=== PATIENT | female | born 1980 | race African-American/Black ===

== ENCOUNTER 2017-03-09 14:16 | Emergency (ER) | payer OTHER ==
[~2017-03-09] VITALS: Ht 170.2 cm; Wt 72.6 kg
[~2017-03-09 14:16] MED LIST: AMOXICILLIN 50500 M1 PO; HYDROCHLOROTH12.5 MG; HYDROCODON-ACE1 EAC7; KEFLEX500 MG PO; NORCO 5-325 TA1 EACH PO; SEROQUEL XR150 M1 PO; TESSALON200 MG PO; VENTOLIN HFA 1818 GM INH; VERAPAMIL E.R240 M1 PO; XANAX XR2 MG PO
[2017-03-09] MEDS ORDERED: PROAIR HFA8.5 GM INH (15:01)
[2017-03-09] MEDS ORDERED: TESSALON PERLE100 MG PO (15:01)
[2017-03-09 15:11] VITALS: BP 121/87
== END 2017-03-09 15:12 | disposition home or self-care (01) ==
LOC: ER 14:16
DX: J06.9 Acute upper respiratory infection, unspecified (principal); I10 Essential (primary) hypertension; Z87.891 Personal history of nicotine dependence

== ENCOUNTER 2018-07-21 14:35 | Emergency (ER) | payer OTHER ==
[~2018-07-21] VITALS: Ht 165.1 cm; Wt 81.7 kg
[~2018-07-21 14:35] MED LIST changes: +PROAIR HFA8.5 GM INH; +TESSALON PERLE100 MG PO
[2018-07-21] MEDS ORDERED: NORCO 5-325 TA1 EACH PO (16:47)
[2018-07-21] MEDS ORDERED: CYCLOBENZAPRINE5 MG PO (16:47)
[2018-07-21] MEDS ORDERED: MEDROLDOSEPACK PO (16:47)
[2018-07-21 17:43] VITALS: BP 163/95
== END 2018-07-21 17:47 | disposition home or self-care (01) ==
LOC: ER 14:35
DX: M51.26 Other intervertebral disc displacement, lumbar region (principal); I10 Essential (primary) hypertension; Z87.891 Personal history of nicotine dependence

== ENCOUNTER 2019-12-17 14:58 | Emergency (ER) | payer OTHER ==
[~2019-12-17] VITALS: Ht 170.2 cm; Wt 81.7 kg
[~2019-12-17 14:58] MED LIST changes: +CYCLOBENZAPRINE5 MG PO; +MEDROLDOSEPACK PO
[2019-12-17] MEDS ORDERED: HYDROCHLOROTHIA25 M2 PO (16:08)
[2019-12-17] MEDS ORDERED: BENAZEPRIL HCL40 MG PO (16:08)
[2019-12-17] MEDS ORDERED: METOPROLOL SUC100 MG PO (16:09)
[2019-12-17] MEDS ORDERED: NIFEDIPINE ER30 M1 PO (16:09)
[2019-12-17 16:51] LABS: ABSOLUTE NEUTROPHILS 1.6 thou/uL (1.4-8.2); BASOPHILS 0.4 % (0.0-2.0); EOSINOPHILS 2.9 % (0.0-3.0); HEMATOCRIT 38.7 % (37.0-47.0); HEMOGLOBIN 13.1 gm/dL (12.0-15.0); LYMPHOCYTES 52.7 % (24.0-44.0); MCH 29.8 pg (26.0-34.0); MCHC 33.9 g/dL (28.0-37.0); MCV 87.8 fL (80.0-100.0); MONOCYTES 7.4 % (1.0-8.0); PLATELET COUNT 167 thou/uL (150-400); POLYS 36.6 % (36.0-66.0); RBC 4.41 mil/uL (4.20-5.00); RDW 15.1 % (10.5-14.5); WBC 4.3 thou/uL (4.0-11.0)
[2019-12-17 17:08] LABS: ALBUMIN 3.4 g/dL (3.4-5.0); CALCIUM 8.9 mg/dL (8.5-10.1); CREATININE 0.7 mg/dL (0.6-1.0); TOTAL BILIRUBIN 0.2 mg/dL (0.2-1.0); TOTAL PROTEIN 7.4 g/dL (6.4-8.2)
[2019-12-17 17:11] LABS: POTASSIUM 2.6 mmol/L (3.5-5.1)
[2019-12-17] MEDS ORDERED: ZPAK PO (18:22)
[2019-12-17] MEDS ORDERED: POTASSIUM20 PO (18:22)
[2019-12-17] MEDS ORDERED: PROMETH-CODEIN 65 ML PO (20:25)
[2019-12-17 22:08] VITALS: BP 122/73
--- NOTE | 2019-12-18 08:07 | EKG ---
[facility] [place] [address] ELECTROCARDIOGRAM REPORT Name: MARIA ESTHER Room #: DEP [facility]..#: [id number] Admission: 12/17/19 Attend Phys: Discharge: 12/17/19 Date of : 76 Report #: [id number] THIS REPORT FOR: cc: Madelaine Gates Christine L. DO Lundgren,Kush Griffin MD [facility] ~ THIS REPORT FOR: //name// [facility] ED Test Date: 2019-12-17 Test Time: 19:27:28 Pat Name: GLO MAYO Department: Room: Gender: Printer Maintainer: [facility] : 1980 Requested By: Ilan Her Order Number: [id number] MD: Kush Sanford Measurements Intervals [place] Rate: 71 P: 55 VA: 180 QRS: 21 QRSD: 87 T: 12 QT: 415 QTc: 451 Interpretive Statements Sinus rhythm Normal tracing Compared to ECG 08/11/2012 00:49:21 Sinus arrhythmia no longer present Electronically Signed On 12-18-2019 8:06:43 CDT by Kush Sanford [email or web address] <ELECTRONICALLY SIGNED> By: Kush Sanford MD, FAC 12/18/19805 26 26 Kush Sanford MD, [facility] /EPI
== END 2019-12-17 22:17 | disposition home or self-care (01) ==
LOC: ER 14:58
PROVIDERS: Physician Assistant
DX: U07.1 COVID-19 (principal); J12.89 Other viral pneumonia; E87.6 Hypokalemia; I10 Essential (primary) hypertension; Z79.899 Other long term (current) drug therapy; Z87.891 Personal history of nicotine dependence; Z20.828 Contact with and (suspected) exposure to other viral communicable diseases